=== PATIENT | female | born 1970 ===

== ENCOUNTER 2016-11-03 02:14 | Emergency (ER) | payer BC ==
--- NOTE | 2016-11-03 02:40 | C.PDOC ---
History Of Present Illness 46 yo female w/PMHx of anxiety/panic attack come in for evaluation of " feeling anxious, panicky woke up this AM. pt sts, was on Klonopin for long time with good control of symptoms. Pt sts, medication " few months ago, leaned different non-medical techniques to control my thoughts. But lately, i am under more stress, and unable to control my mood anymore". Otherwise, pt denies recent illness, denies any other somatic complaints, denies suicidal ideation or attempts, denies substance abuse. Ambulate to ED, appears slightly anxious. Pt admits, has scheduled psychiatrist appointment for tomorrow. Time Seen by Provider: 11/03/16 02:25 Chief Complaint (Nursing): Anxiety History Per: Patient Past Medical History Reviewed: Historical Data, Nursing Documentation, Vital Signs Vital Signs: Last Vital Signs Temp 97.2 F L 11/03/16 03:47 Pulse 81 11/03/16 03:47 Resp 20 11/03/16 03:47 BP 129/70 11/03/16 03:47 Pulse Ox 98 11/03/16 03:47 - Medical History PMH: Anxiety, Crohn's Disease Denies: Chronic Kidney Disease Surgical History: Cholecystectomy Family History: States: No Known Family Hx - Social History Hx Tobacco Use: No Hx Alcohol Use: No Hx Substance Use: Yes - Immunization History Hx Tetanus Toxoid Vaccination: No Hx Influenza Vaccination: No Hx Pneumococcal Vaccination: No Review Of Systems Except As Marked, All Systems Reviewed And Found Negative. Constitutional: Negative for: Fever, Chills Eyes: Negative for: Vision Change ENT: Negative for: Throat Pain, Throat Swelling Cardiovascular: Negative for: Chest Pain, Palpitations, Edema, Light Headedness Respiratory: Negative for: Cough, Shortness of Breath, Wheezing Gastrointestinal: Negative for: Nausea, Vomiting, Abdominal Pain, Diarrhea Genitourinary: Negative for: Dysuria, Incontinence Musculoskeletal: Negative for: Neck Pain, Back Pain Skin: Negative for: Rash Neurological: Negative for: Weakness, Numbness, Altered Mental Status, Headache , Dizziness Psych: Positive for: Anxiety Physical Exam - Physical Exam Appears: Well, Non-toxic, No Acute Distress Skin: Normal Color, Warm, Dry, No Ecchymosis Eye(s): bilateral: PERRL Nose: No Flaring, No Discharge Oral Mucosa: Moist, No Drooling Throat: No Erythema, No Drooling Neck: Normal ROM, Supple, Other ((-) carotid bruits) Cardiovascular: Rhythm Regular Respiratory: No Decreased Breath Sounds, No Accessory Muscle Use, No Rales, No Rhonchi, No Stridor, No Wheezing Gastrointestinal/Abdominal: Soft, No Tenderness, No Organomegaly, No Distention , No Guarding Back: No CVA Tenderness Extremity: Normal ROM, No Pedal Edema, No Deformity Neurological/Psych: Oriented x3, Normal Speech, Normal Motor, Normal Sensation, Normal Reflexes ED Course And Treatment ECG: Interpreted By Me, Viewed By Me ECG Rhythm: Sinus Rhythm ECG Interpretation: Normal Interpretation Of ECG: SR@64/min,NAD, no acute T wave or ST-T changes. O2 Sat by Pulse Oximetry: 100 Pulse Ox Interpretation: Normal - Radiology CXR: Interpreted by Me, Viewed By Me CXR Interpretation: Yes: No Acute Disease Progress Note: On re-evaluation, pt is afebrile, hemodynamicaly stable. Non- toxic. Appears appropriate. PES was called and evaluated pt in ED, referral provided. PulseOx 100% RA. ENT: no acute findings. Neck: Supple. Lungs: CTA B/L, BS equal B/L. CVS: (+)S1S2, reg. Abd: benign. Neuorlogtical intact. EKG , CXR- normal study. Pt has clinical findings c/w anxiety episode. Pt advised and ref. to F/u with Psych as scheduled tomorrow for re-evaluation. Return [facility] ED if any worsening or new changes. Disposition Counseled Patient/Family Regarding: Diagnosis, Need For Followup - Disposition Referrals: [facility] [Outside] Disposition: HOME/ ROUTINE Disposition Time: 03:14 Condition: STABLE Additional Instructions: Follow up with psychiatrist as scheduled today for further evaluation and treatment Return to ED if any worsening or new changes. Instructions: Anxiety (ED) Forms: [employer] (Frisian) - Clinical Impression Clinical Impression: Anxiety
[2016-11-03 03:48] VITALS: BP 129/70; PULSE 81; RESP 20; TEMP 97.2
[2016-11-03 04:47] VITALS: O2SAT 100
--- NOTE | 2016-11-03 10:05 | RAD ---
HISTORY: Cough COMPARISON: No prior. TECHNIQUE: Chest PA and lateral FINDINGS: LUNGS: The lungs are well inflated and clear. PLEURA: No significant pleural effusion identified. No pneumothorax apparent. CARDIOVASCULAR: Normal. OSSEOUS STRUCTURES: No significant abnormalities. VISUALIZED UPPER ABDOMEN: Normal. OTHER FINDINGS: None. IMPRESSION: No active pulmonary disease.
--- NOTE | 2016-11-04 13:00 | CARD ---
APPROVED REPORT EKG Measurement Heart [id number] <Conclusion> Sinus rhythm with short [place] Otherwise normal ECG
== END 2016-11-03 03:48 | disposition home or self-care (01) ==
LOC: C.ER 02:14
DX: F41.9 Anxiety disorder, unspecified (principal)